=== PATIENT | male | born 1940 | race Caucasian/White ===

== ENCOUNTER 2017-02-22 17:29 | Emergency (ER) | payer MEDICARE, MEDICAID ==
[~2017-02-22] VITALS: Ht 193 cm; Wt 115.0 kg
[~2017-02-22 17:29] MED LIST: BRIM0.2S LEFT EYE; DIFL0.0512 LEFT EYE; DILT180C PO; EPIP0.3I IM; GABA300C3 PO; HYDR-2768 PO; LOSA100T PO; LOTE0.5S LEFT EYE; NEPA0.3D LEFT EYE; PRAV20 PO; PRED50 PO; XALA0.00 EACH EYE; [UNRECOGNIZED DRUG - CODE] LEFT EYE
[2017-02-22 17:32] VITALS: BP 186/88; PULSE 58; RESP 20; TEMP 97.6; O2SAT 94
== END 2017-02-22 19:34 | disposition left against medical advice (07) ==
LOC: NED 17:29
DX: M79.606 Pain in leg, unspecified (principal)
CPT/HCPCS: 99281

== ENCOUNTER 2017-03-04 10:04 | Day surgery (SDC) | payer MEDICARE, MEDICAID ==
[2017-03-04] MEDS ORDERED: POVIDONE IODINE 5% (ANTISEPSIS KIT) 4 APPLICATIONS EACH NARE SCH (11:00)
[2017-03-04] MEDS ORDERED: MUPIROCIN 2% OINT 1 APPLIC/GM SYR NASAL SCH (11:00)
[2017-03-04] MEDS ORDERED: CHLORHEXIDINE GLUCONATE 2 % 1 PACK (2 CLOTHS) TOPICAL SCH (11:00)
[2017-03-04] MEDS ORDERED: VANCOMYCIN 1000 MG/NS 250 ML IV SCH ×2 (11:00)
[2017-03-04] MEDS ORDERED: ceFAZolin 2 GM PREMIX 50 ML IV SCH (11:00)
[2017-03-04] MEDS ORDERED: NS 1000 ML IV SCH (11:00)
[2017-03-04 11:41] VITALS: BP 154/86; PULSE 53; RESP 18; O2SAT 94
[2017-03-04] MEDS ORDERED: HYDR25TA5 PO (11:46)
[2017-03-04] MEDS ORDERED: LATA0.002 EACH EYE (11:46)
[2017-03-04] MEDS ORDERED: ANAS1TAB PO (11:46)
[2017-03-04] MEDS ORDERED: DILT-48 PO (11:46)
[2017-03-04] MEDS ORDERED: CLON0.1T PO (11:46)
[2017-03-04] MEDS ORDERED: OMEP20TA PO (11:46)
[2017-03-04] MEDS ORDERED: SOMA350T PO (11:46)
[2017-03-04] MEDS ORDERED: MELO7.5T4 PO (11:46)
[2017-03-04] MEDS ORDERED: TEST200I13 IM (11:46)
[2017-03-04] MEDS ORDERED: LOSA100T PO (11:46)
[2017-03-04] MEDS ORDERED: IBUP-232 PO (11:46)
--- NOTE | 2017-03-04 12:51 | MA ---
cc: DONAVON LUGO MD DATE: 03/04/2017 PROCEDURE Loop recorder insertion. INDICATION Syncope. PERFORMING PHYSICIAN Dr. Donavon Lugo. DESCRIPTION OF PROCEDURE The patient was brought to the DOC unit in the postabsorptive state. After informed consent was obtained a [employer] LIN[employer] loop recorder was inserted subcutaneously in the left chest. The patient tolerated the procedure well without any apparent complications. Tachybrady pause and atrial fibrillation detection was enabled. The initial R-wave was 0.45 mV. The serial number is [id number]. Donavon Lugo MD AIDE/LESLIE /12:42 PM /12:48 PM
== END 2017-03-04 14:08 | disposition home or self-care (01) ==
LOC: HDOC 10:04 → HDIC 10:05 → HDOC 14:08
PROVIDERS: ATTEND Nuclear Medicine Nuclear Cardiology
DX: R55 Syncope and collapse (principal); I11.9 Hypertensive heart disease without heart failure
CPT/HCPCS: 33282; C1764; J0690